=== PATIENT | male | born 1945 | race Caucasian/White ===

== ENCOUNTER 2020-06-11 13:34 | Outpatient (RCR) | payer OTHER | END 2020-09-09 | disposition home or self-care (01) | LOC: ONC 13:34 | PROVIDERS: ATTEND Radiology Radiation Oncology | DX: C61 Malignant neoplasm of prostate (principal) | CPT/HCPCS: 76873; 99205 ==

== ENCOUNTER 2020-09-18 06:13 | Outpatient (CLI) | payer OTHER ==
[~2020-09-18] VITALS: Ht 180.3 cm; Wt 81.8 kg
[2020-09-18] MEDS ORDERED: OMEG-160 PO (15:59)
[2020-09-18] MEDS ORDERED: TMSL.4C PO (15:59)
[2020-09-18] MEDS ORDERED: MULT-1136 PO (15:59)
[2020-09-18] MEDS ORDERED: PRAV40TA2 PO (15:59)
[2020-09-18] MEDS ORDERED: SILD100T67 PO (15:59)
[2020-09-18] MEDS ORDERED: ASPI-808 PO (15:59)
[2020-09-18] MEDS ORDERED: NF-VITD400 PO (15:59)
== END 2020-09-18 16:03 | disposition home or self-care (01) ==
LOC: PREOP 06:13
PROVIDERS: ATTEND Radiology Radiation Oncology
DX: Z01.818 Encounter for other preprocedural examination (principal)

== ENCOUNTER 2020-09-25 09:32 | Day surgery (SDC) | payer OTHER ==
[2020-09-25] VITALS (11 sets, daily range): BP systolic 149–172; BP diastolic 73–81
[~2020-09-25] VITALS: Ht 180.3 cm; Wt 81.8 kg
[~2020-09-25 09:32] MED LIST: ASPI-808 PO; MULT-1136 PO; NF-VITD400 PO; OMEG-160 PO; PRAV40TA2 PO; SILD100T67 PO; TMSL.4C PO
[2020-09-25] MEDS: LACTATED RINGERS 1,000 ML IV PRN ×2 (10:02→12:05)
--- NOTE | 2020-09-25 10:15 | Progress Note-Pre Operative ---
Pre-Operative Progress Note H&P Reviewed The H&P was reviewed, patient examined and no changes noted. Date Seen by Provider: Sep 25, 2020 Time Seen by Provider: : Date H&P Reviewed: Sep 25, 2020 Time H&P Reviewed: :14 Pre-Operative Diagnosis: Prostate cancer cT1c, PSA 6.92, [place] 7 (3+4) ALAN ROSE MD Sep 25, 2020 10:15
[2020-09-25] MEDS ORDERED: CIPR-226 PO (10:19)
[2020-09-25] MEDS ORDERED: ACET1TAB43 PO (10:19)
--- NOTE | 2020-09-25 10:21 | Discharge Inst-Simple/Standard ---
Discharge Inst-Standard Reconcile Patient Problems Problems Reviewed?: Yes Discharge Medications New, Converted or Re-Newed RX: RX Given to Pt/Family Patient Instructions/Follow Up Plan of Care/Instructions/FU: 1)one month post implant scan at [facility] cancer center 10/23/20 at 9:00 a.m. 2)follow up with Dr. Gonzalez 10/24/20 at 2:30 p.m. Activity as Tolerated: Yes Discharge Diet: No Restrictions Other Inst to Patient Please instruct patient/ on catheter care and removal. To remove catheter on Wednesday09/30/20 first thing in a.m. ALAN ROSE MD Sep 25, 2020 10:21
[2020-09-25] MEDS ORDERED: proPOfol 200 MG/20 ML (DIPRIVAN) VIAL IV ONE (11:20)
[2020-09-25] MEDS ORDERED: LIDOCAINE PF 2% 5 ML (XYLOCAINE) VIAL ONE (11:20)
[2020-09-25] MEDS ORDERED: ONDANSETRON 4 MG/2 ML (SDV) Z0FRAN ONE (11:20)
[2020-09-25] MEDS ORDERED: BACITRACIN OINTMENT 28 GM TUBE ONE (11:20)
[2020-09-25] MEDS ORDERED: fentaNYL INJ 100 MCG/2 ML AMP ONE (11:20)
[2020-09-25] MEDS ORDERED: morphine INJ 10 MG/ML 1ML (SYR OR VIAL) IVP ONE (12:45)
[2020-09-25] MEDS ORDERED: ONDANSETRON 4 MG/2 ML (SDV) Z0FRAN IVP PRN (12:45)
--- NOTE | 2020-09-25 13:00 | Diagnostic Imaging Report ---
Indication: Prostate cancer Impression: 38 seconds of fluoroscopy and single AP digital image of the pelvis is obtained in surgery for placement of brachytherapy seeds in the prostate by Dr. Hardy. Dictated by: Dictated on workstation # [id number]
--- NOTE | 2020-09-25 13:42 | Progress Note-Post Operative ---
Post-Operative Progess Note Surgeon (s)/Bioinformatics Engineer (s) Surgeon ALAN ROSE MD Bioinformatics Engineer: Stefania SÁNCHEZ MD Pre-Operative Diagnosis Prostate cancer cT1c, PSA 6.92, [place] 7 (3+4) Post-Operative Diagnosis Same as preop Procedure & Operative Findings Date of Procedure 09/25/20 Procedure Performed/Findings (1) 100% Cesium 131 permanent prostate seed implant (2) Injection of biodegradable hydrogel prostate-rectal spacer utilizing the SpaceO[employer] system (3) Cystogram Prostate volume 49 cc Anesthesia Type General Estimated Blood Loss Estimated blood loss (mL): Minimal Specimens/Packing Specimens Removed None Packing: N/A ALAN ROSE MD Sep 25, 2020 13:42
--- NOTE | 2020-09-25 14:37 | Anesthesia-General Post-Op ---
General Patient Condition Mental Status/LOC: Same as Preop Cardiovascular: Satisfactory Nausea/Vomiting: Absent Respiratory: Satisfactory Pain: Controlled Complications: Absent Post Op Complications Complications None Follow Up Care/Instructions Patient Instructions None needed. Anesthesia/Patient Condition Patient Condition Patient is doing well, no complaints, stable vital signs, no apparent adverse anesthesia problems. AHMET MAKI DO Sep 25, 2020 14:37
== END 2020-09-25 15:15 | disposition home or self-care (01) ==
LOC: SDC 09:32
PROVIDERS: ATTEND Radiology Radiation Oncology
DX: C61 Malignant neoplasm of prostate (principal); E78.00 Pure hypercholesterolemia, unspecified; E78.5 Hyperlipidemia, unspecified; Z79.82 Long term (current) use of aspirin; Z79.899 Other long term (current) drug therapy; Z85.828 Personal history of other malignant neoplasm of skin; Z80.51 Family history of malignant neoplasm of kidney; Z80.3 Family history of malignant neoplasm of breast
CPT/HCPCS: 76000; 76965; 77290; 77318; 77332; 77370; 77470; 77778; 87081

== ENCOUNTER 2020-10-23 08:39 | Outpatient (RCR) | payer OTHER ==
[~2020-10-23 08:39] MED LIST changes: +ACET1TAB43 PO; +CIPR-226 PO
== END 2021-01-21 | disposition home or self-care (01) ==
LOC: ONC 08:39
PROVIDERS: ATTEND Radiology Radiation Oncology
DX: Z51.0 Encounter for antineoplastic radiation therapy (principal); C61 Malignant neoplasm of prostate; E78.00 Pure hypercholesterolemia, unspecified; N40.1 Benign prostatic hyperplasia with lower urinary tract symptoms
CPT/HCPCS: 77290; 77295

== ENCOUNTER 2021-03-27 09:59 | Outpatient (RCR) | payer OTHER | END 2021-04-14 | disposition home or self-care (01) | LOC: ONC 09:59 | PROVIDERS: ATTEND Radiology Radiation Oncology | DX: C61 Malignant neoplasm of prostate (principal); E78.00 Pure hypercholesterolemia, unspecified; N40.1 Benign prostatic hyperplasia with lower urinary tract symptoms | CPT/HCPCS: 84153; 99213 ==